=== PATIENT | male | born 1940 | race Two or more races ===

== ENCOUNTER 2024-10-15 20:32 | Observation (INO) | payer MEDICARE, MEDICAID, SELFPAY ==
[2024-10-15 20:34] VITALS: BMI 27.9
--- NOTE | 2024-10-15 21:02 | EKG_ITS ---
[facility] Test Date: 2024-10-15 Pat Name: YAMILETH SOLIS Department: Room: - Gender: Male All Around Presser: : 1940 Requested By: Maksim Martel Order Number: [id number] Reading MD: Maksim Martel Measurements Intervals [place] Rate: 88 P: 27 CA: 167 QRS: 0 QRSD: 82 T: 31 QT: 359 QTc: 436 Interpretive Statements SINUS RHYTHM WITH FREQUENT VENTRICULAR PREMATURE COMPLEXES LOW QRS VOLTAGE IN PRECORDIAL LEADS [QRS DEFLECTION < 1.0 mV IN CHEST LEADS] POSSIBLE ANTERIOR MYOCARDIAL INFARCTION , OF INDETERMINATE AGE [30 ms Q WAVE IN V3/V4, OR R < 0.2 mV IN V4] No previous ECG available for comparison /store/S0/[id number].pdf
[2024-10-15 21:37] LABS: B-Type Natriuretic Peptide 54 pg/mL (0-100)
[2024-10-15 21:38] LABS: Basophils % (Auto) 0 % (0-2.5); Eosinophils # (Auto) 0.2 Thou/mm3 (0.0-0.5); Eosinophils % (Auto) 2 % (0-10); Hematocrit 40.1 % (41.0-53.0); Hemoglobin 13.9 g/dL (13.5-16.0); Immature Granulocytes % (Auto) 0 % (0-0); Immature Granulocytes Auto 0.02 Thou/mm3 (0.00-0.00); Lymphocytes # (Auto) 2.1 Thou/mm3 (1.0-4.8); Lymphocytes % (Auto) 27 % (10-50); Mean Corpuscular HGB Conc 34.7 g/dl (31.0-37.0); Mean Corpuscular Hemoglobin 31.7 pg (25.0-35.0); Mean Corpuscular Volume 91 fL (80-100); Monocytes # (Auto) 0.9 Thou/mm3 (0.0-0.8); Monocytes % (Auto) 11 % (0-12); Neutrophils # (Auto) 4.7 Thou/mm3 (1.8-7.7); Neutrophils % (Auto) 60 % (37-80); Nucleated Red Blood Cell % 0 /100 WBC (0); Platelet Count 225 Thou/mm3 (140-440); RDW Standard Deviation 44.7 fL (35.1-43.9); Red Blood Count 4.39 Miln/mm3 (4.50-5.90); White Blood Count 7.9 Thou/mm3 (3.8-10.6)
--- NOTE | 2024-10-15 21:38 | XR_ITS ---
Examination: CT abdomen and pelvis without contrast. Coronal 3-D reconstructions. Sagittal 2-D reconstructions. Date and time of exam:October 15, 2024 1001 hrs. Indications: Right groin pain today, history inguinal hernia CTDI: vol (mGy): 6.46 DLP: (mGycm): 407 Technique: Axial images of the abdomen have been obtained, 3 mm slice thickness Intravenous contrast material has not been administered. Low dose protocols were performed. One or more of the following dose reduction techniques were used; automated exposure control, adjustment of the mA and/or KV according to patient size, use of iterative reconstruction technique. Findings: No focal liver or splenic lesions Calcification of the splenic capsule No gallstones No pancreatic mass Moderate bilateral renal parenchymal scar formation Perinephric stranding Abdominal aortic calcification no aneurysmal dilatation Normal appendix No bowel obstruction Right inguinal hernia containing sigmoid colon but no incarcerated bowel, no obstruction Fat-containing left inguinal hernia Chronic osteoporotic compression L4 Impression: Right inguinal hernia containing sigmoid colon but no incarcerated bowel Fat-containing left inguinal hernia
[2024-10-15 21:39] VITALS: BP 153/82; PULSE 89; RESP 18; TEMP 36.8; O2SAT 98
--- NOTE | 2024-10-15 21:39 | PC.NURSE ---
First contact with pt in Room 2, pt in gown, connected to bedside public information director call light within reach. Pt's daughter currently at bedside, at bedside evaluating pt.
--- NOTE | 2024-10-15 21:39 | EDNOTE_ITS ---
ED General RME/HPI General Chief complaint: Abdominal Pain Stated complaint: RIGHT GROIN PAIN;HX INGUINAL HERNIA Time Seen by Provider: 10/15/24 20:39 Arrival date/time: 10/15/24 20:32 CC: Right groin pain HPI ongoing for the past week, was seen for the same complaint in [place] was told he had a inguinal hernia . Patient denies scrotal pain painful urination bloody urination abdominal pain nausea vomiting or diarrhea. No prior history of similar events. Related Data Allergies Allergy/AdvReac Type Severity Reaction Status Date / Time No Known Allergies Allergy Verified 10/15/24 20:37 Review of Systems Review of Systems Narrative Review of Systems: GEN: No fever, no chills, no weight loss EYES: No discharge, no visual changes, no pain HEENT: No ear pain, no congestion, no sore throat PULM: No shortness of breath, no cough, no congestion CV: No chest pain, no dyspnea on exertion, no palpitations GI: No nausea, no vomiting, no diarrhea, + pain, no constipation : No frequency, no urgency, no dysuria MUSC/SKEL: No joint pain, no back pain SKIN: No rash PSYCH: No hallucinations, no depression HEME/LYMPH: No easy bleeding or bruising tendencies NEURO: No weakness, no headache Past Medical History Social History SMOKING STATUS: Never smoker ED Exam Narrative Physical exam: [General: Not in any acute distress Head normocephalic HEENT: Within acceptable limits Neck is supple nontender Chest equal chest rise nontender to palpation Respiratory: Clear to auscultation no wheezes crackles or rubs CV: Rate rhythm is regular no murmurs rubs or clicks Abdomen is soft flat there is tenderness in the pubis mons right side inguinal crease, but no firm masses no outpouching. There is no scrotal pain with palpation. , penis is clean dry and intact no blood at the meatus, scrotum is nonerythematous nonedematous. Back: No CVA tenderness no spinous process tenderness from cervical spine thoracic and lumbar spine Skin: Intact no petechiae rash induration ulceration or crepitus Extremities: Moving all extremity against resistance cap refill less than 2 seconds neurosensory intact Neuro: Awake alert oriented x3 Glascow coma 15 no focal deficits] Course Quality Measures none Orders Category Date Time Status EKG (ED ONLY) *Do not use* NOW Care 10/15/24 21:02 Completed Consult to Gastroenterology Stat Cons 10/15/24 21:53 Ordered Consult to General Surgery Stat Cons 10/15/24 21:[address] abdomen pelvis wo con Stat Exams 10/15/24 21:38 Completed EKG (ED Only) Stat Exams 10/15/24 21:02 Draft B-Type Natriuretic Peptide Stat Lab 10/15/24 21:11 Completed CBC Stat Lab 10/15/24 21:11 Completed Comprehensive Metabolic Panel Stat Lab 10/15/24 21:11 Completed Drug Screen,Urine Stat Lab 10/15/24 21:55 Completed LDH (Lactate Dehydrogenase) Stat Lab 10/15/24 21:11 Completed Magnesium Stat Lab 10/15/24 21:11 Completed Partial Thromboplastin Time Stat Lab 10/15/24 21:11 Completed Prothrombin Time with INR Stat Lab 10/15/24 21:11 Completed Troponin I Stat Lab 10/15/24 21:11 Completed Urinalysis Stat Lab 10/15/24 21:55 Completed Vital Signs Vital signs: Vital Signs Temperature 98.2 F 10/15/24 21:39 Pulse Rate 89 10/15/24 21:39 Respiratory Rate 18 10/15/24 21:39 Blood Pressure 153/82 H 10/15/24 21:39 Pulse Oximetry (%) 98 10/15/24 21:39 Oxygen Delivery Method Room Air 10/15/24 21:39 [facility] Patient data External records reviewed:: [facility] previous records Clinical information provided by:: patient and family Social determinants that could affect healthcare access:: none Patient has the following chronic illnesses:: BPH hypertension, hypercholesteremia How is presenting disease/condition affected by chronic disease/condition?: u neffected by Evaluation data The following diagnostics were reviewed and interpreted by me:: lab results and radiology exam(s) Lab and/or radiology exams considered but not ordered:: CBC shows no acute leukocytosis anemia thrombocytopenia CMP shows no acute electrolyte imbalances renal Quan transaminitis or T. bili elevation Coags within acceptable MS Troponin is negative EKG performed at 2159 shows a ventricular rate of 88 NE interval 167 QRS of 82 QTc 405 sinus rhythm with frequent PVCs. CT shows inguinal hernia with a small amount of bowel no incarceration Interpretation Summary: Inguinal hernia with small amount of bowel. Medications Medications considered but not ordered:: None Medication administrations:: None Consultations Consultation(s) initiated? (list below): Yes Consultation #1 (Physician, Specialty, Details): Yunior Time: 23:24 Diagnosis Differential Diagnosis ED Complaint MDM: Inguinal hernia with incarcerated bowel, inguinal hernia with fat inguinal Most likely diagnosis given after review of the tests above:: Inguinal hernia with bowel nonincarcerated Admission Indicated Admission indicated?: indicated Explain why admission is indicated or not indicated:: Further surgical management Admission Request Was there a request for admission?: No Disposition Plan Disposition Plan: Admit Medical Decision Making Differential Diagnosis Differential Diagnosis: Inguinal hernia with incarcerated bowel, inguinal hernia with fat inguinal Lab Data 10/15/24 21:11 10/15/24 21:11 Labs: Lab Results 10/15/24 10/15/24 Range/Units 21:11 21:55 WBC 7.9 (3.8-10.6) Thou/mm3 RBC 4.39 L (4.50-5.90) Miln/mm3 Hgb 13.9 (13.5-16.0) g/dL Hct 40.1 L (41.0-53.0) % MCV 91 (80-100) fL MCH 31.7 (25.0-35.0) pg MCHC 34.7 (31.0-37.0) g/dl RDW Std Deviation 44.7 H (35.1-43.9) fL Plt Count 225 (140-440) Thou/mm3 Neut % (Auto) 60 (37-80) % Lymph % (Auto) 27 (10-50) % [place] % (Auto) 11 (0-12) % Eos % (Auto) 2 (0-10) % Baso % (Auto) 0 (0-2.5) % Neut # (Auto) 4.7 (1.8-7.7) Thou/mm3 Lymph # (Auto) 2.1 (1.0-4.8) Thou/mm3 [place] # (Auto) 0.9 H (0.0-0.8) Thou/mm3 Eos # (Auto) 0.2 (0.0-0.5) Thou/mm3 Baso # (Auto) 0.0 (0.0-0.2) Thou/mm3 Immature Gran # (Auto) 0.02 H (0.00-0.00) Thou/mm3 Absolute Nucleated RBC 0.00 (0.00-0.00) Thou/mm3 Immature Gran % 0 (0-0) % Nucleated RBC % 0 (0) /100 WBC PT 11.3 (9.0-12.2) Seconds INR 1.0 (0.9-1.3) APTT 25.9 (22.0-36.0) Seconds Sodium 140 (136-145) mMol/L Potassium 4.2 (3.4-5.1) mMol/L Chloride 107 (98-107) mMol/L Carbon Dioxide 25.7 (20.0-31.0) mMol/L Anion Gap 7 (7-16) BUN 20 (9-23) mg/dL Creatinine 1.1 (0.6-1.3) mg/dL Estim Creat Clear Calc 47.7 L (>60) mL/min eGFR > 60 (60 - ) See Note BUN/Creatinine Ratio 18 (12-20) Ratio Glucose 89 (74-106) mg/dL Calculated Osmolality 281 (275-295) Calcium 9.7 (8.3-10.6) mg/dL Corrected Calcium 9.7 (8.5-10.1) mg/dL Magnesium 2.0 (1.6-2.6) mg/dL Total Bilirubin 0.6 (0.3-1.2) mg/dL AST 17 (0-34) U/L ALT 16 (10-49) U/L Alkaline Phosphatase 69 (46-116) U/L Lactate Dehydrogenase 160 (120-246) U/L Troponin I < 0.020 (0.0-0.045) ng/mL B-Natriuretic Peptide 54 (0-100) pg/mL Total Protein 7.2 (5.7-8.2) gm/dL Albumin 4.2 (3.4-4.8) gm/dL Globulin 3.0 (2.3-3.5) gm/dL Albumin/Globulin Ratio 1.4 (1.2-2.2) Ur Collection Type Clean Catch Urine Color Yellow (Lt Yel-Yel) Urine Clarity Clear (Clear/Hazy) Urine pH 6.5 (5.0-7.0) Ur Specific [place] 1.024 (1.001-1.035) Urine Protein 1+ A (Neg - Trace) Urine Glucose (UA) Negative (Negative) Urine Ketones Negative (Negative) Urine Blood 1+ A (Negative) Urine Nitrite Negative (Negative) Urine Bilirubin Negative (Negative) Urine Urobilinogen (Auto) Negative (0.0-1.0) mg/dL Ur Leukocyte Esterase Negative (Negative) Urine RBC 17 H (0-3) /hpf Urine WBC 1 (0-5) /hpf Ur Squamous Epith Cells 0 (0-5) /hpf Urine Bacteria None (None) Urine Opiates Screen Negative (Negative) Urine Fentanyl Screen Negative (Negative) Ur Barbiturates Screen Negative (Negative) U Amphetamin/Meth Scrn Negative (Negative) U Benzodiazepines Scrn Negative (Negative) U Cocaine Metab Screen Negative (Negative) U Marijuana (THC) Screen Negative (Negative) Discharge Plan Plan Patient Disposition: Other Care w/in Hosp ([facility]C/[facility]) Patient condition on transfer: Stable Prescriptions/Referrals Referrals: Blair Mojica MD [Primary Care Provider] - In 1 week Problem List Clinical Impression: Inguinal hernia, Abdominal pain, acute, right lower quadrant Patient/Caregiver Discharge Instructions Print Language: Montserratian Stand Alone Forms: Gisela Award Info., Patient Portal Info Letter PA/BACON SKIN LIFTER Supervising Physician PA/BACON SKIN LIFTER Supervising Physician: Adilson Neal ENP
[2024-10-15 21:42] LABS: Alanine Aminotransferase 16 U/L (10-49); Albumin, Serum 4.2 gm/dL (3.4-4.8); Albumin/Globulin Ratio 1.4 (1.2-2.2); Alkaline Phosphatase 69 U/L (46-116); Anion Gap 7 (7-16); Aspartate Amino Transferase 17 U/L (0-34); BUN/Creatinine Ratio 18 Ratio (12-20); Bilirubin,Total 0.6 mg/dL (0.3-1.2); Blood Urea Nitrogen 20 mg/dL (9-23); Calcium 9.7 mg/dL (8.3-10.6); Calcium (Corrected) 9.7 mg/dL (8.5-10.1); Carbon Dioxide 25.7 mMol/L (20.0-31.0); Chloride 107 mMol/L (98-107); Creatinine (Component) 1.1 mg/dL (0.6-1.3); Estimated Creatinine Clearance 47.7 mL/min (>60); Glucose 89 mg/dL (74-106); Osmolality,Calculated 281 (275-295); Potassium 4.2 mMol/L (3.4-5.1); Sodium 140 mMol/L (136-145); Total Protein 7.2 gm/dL (5.7-8.2); Troponin I < 0.020 ng/mL (0.0-0.045); eGFR > 60 See Note
[2024-10-15 21:46] LABS: Partial Thromboplastin Time 25.9 Seconds (22.0-36.0); Prothrombin Time 11.3 Seconds (9.0-12.2)
[2024-10-15 22:03] LABS: Collection Type, Urine Clean Catch; Squamous Epithelial Cell,Urine 0 /hpf (0-5)
[2024-10-15 22:15] LABS: Bilirubin,Urine Negative (Negative); Blood,Urine 1+ (Negative); Clarity,Urine Clear (Clear/Hazy); Color,Urine Yellow (Lt Yel-Yel); Glucose, Urine Negative (Negative); Ketones,Urine Negative (Negative); Leukocyte Esterase,Urine Negative (Negative); Nitrite,Urine Negative (Negative); PH,Urine 6.5 (5.0-7.0); Protein,Urine 1+ (Neg - Trace); RBC,Urine 17 /hpf (0-3); Specific Gravity,Urine 1.024 (1.001-1.035); Urobilinogen,Urine Negative mg/dL (0.0-1.0); WBC,Urine 1 /hpf (0-5)
[2024-10-15 22:23] LABS: Amphetamine/Methamp Scrn,U Negative (Negative); Barbiturate Screen,Urine Negative (Negative); Benzodiazepines Screen,Urine Negative (Negative); Benzoylecgonine Screen, Ur Negative (Negative); Fentanyl Screen,Urine Negative (Negative); Opiate Screen,Urine Negative (Negative); THC Screen,Urine Negative (Negative)
[2024-10-15 22:35] LABS: LDH (Lactate Dehydrogenase) 160 U/L (120-246)
[2024-10-15 23:00] VITALS: BP 140/94; PULSE 88; RESP 18; TEMP 36.5; O2SAT 98
[2024-10-16] VITALS (14 sets, daily range): BP systolic 114–157; BP diastolic 55–94; PULSE 64–97; RESP 12–92; TEMP 36.2–36.8; O2SAT 92–100; BMI 25.4
--- NOTE | 2024-10-16 01:04 | PD.RESHP ---
Documentation for date of: 10/16/24 HPI History of Present Illness Chief complaint: pain at the site of hernia History of present illness: A 83-year-old male with past medical history of hypertension, BPH presented to the hospital with chief complaints of pain at the site of right inguinal hernia since 1 week. Patient went to [place] last week and went to the hospital in the [place] in view of pain at the site of inguinal hernia and recommended to get surgery. Patient endorsed that he is having right inguinal hernia since 5 to 6 months from now and since 2 weeks patient is having pain at the site of hernia. Endorsed that the swelling reduces manually and increases with coughing denies fever, constipation, abdominal pain, blood or blackish discoloration of stools. Denies any history of chronic cough or lifting heavy weights. ED Course: -Initial vitals were stable except for mildly elevated blood pressure 153/82 mmHg. -Labs significant for WBC 7.9, BUN 20, creatinine 1.1. Urine analysis showed 1+ proteinuria, 1+ blood, 17 RBC. Tested negative for urine toxicology -Abdomen/pelvis CT showed right inguinal hernia with sigmoid colon as content without iincarceration -Patient was admitted for pain at right inguinal hernia for observation Past medical history: Hypertension, BPH Past surgical history: Not significant Social history: Had remote history of smoking, cigars once in a while, denies alcohol, other illicit drug abuse. Review of Systems Review of Systems Systems Reviewed: All systems reviewed, normal except as documented Past Medical History Past Medical History CARDIAC: Positive Hypertension GENITOURINARY: Positive Benign Prostatic Hyperplasia Social History SMOKING STATUS: Former smoker Exam Vital Signs Temp Pulse Resp BP Pulse Ox O2 Del Method 97.8 F 88 18 157/94 H 95 Room Air 10/16/24 00:00 10/16/24 00:00 10/16/24 00:00 10/16/24 00:00 10/16/24 00:00 10/16/24 00:00 Narrative Exam General: Awake. HEENT: Normocephalic, atraumatic, mucous membranes moist. Heart: Regular rate and rhythm, no murmurs. Lungs: Clear to auscultation with no wheezing or crackles. Abdomen: Soft, nondistended, nontender, positive bowel sounds. ?No guarding or rebound tenderness. reducible inguinal hernia Neurologic: Alert and oriented x3, no gross neurological deficit, and patient able to move all 4 extremities. Extremities: No edema. Skin: No rash or ecchymoses. Results: Labs 10/15/24 21:11 10/15/24 21:11 Labs: Short CBC 10/15/24 Range/Units 21:11 WBC 7.9 (3.8-10.6) Thou/mm3 Hgb 13.9 (13.5-16.0) g/dL Hct 40.1 L (41.0-53.0) % Plt Count 225 (140-440) Thou/mm3 BMP 10/15/24 21:11 Sodium 140 Potassium 4.2 Chloride 107 Carbon Dioxide 25.7 BUN 20 Creatinine 1.1 Glucose 89 Calcium 9.7 Cardiac Enzymes 10/15/24 Range/Units 21:11 Troponin I < 0.020 (0.0-0.045) ng/mL Liver Function 10/15/24 Range/Units 21:11 Total Bilirubin 0.6 (0.3-1.2) mg/dL AST 17 (0-34) U/L ALT 16 (10-49) U/L Alkaline Phosphatase 69 (46-116) U/L Albumin 4.2 (3.4-4.8) gm/dL Urine 10/15/24 Range/Units 21:55 Urine Color Yellow (Lt Yel-Yel) Urine Clarity Clear (Clear/Hazy) Urine pH 6.5 (5.0-7.0) Ur Specific [place] 1.024 (1.001-1.035) Urine Protein 1+ A (Neg - Trace) Urine Glucose (UA) Negative (Negative) Quality Measures Quality Measures none Advance care planning discussed with:: patient Medications Home Medications and Allergies Home Medications ?Medication ?Instructions ?Recorded ?Confirmed ?Type amlodipine 10 mg tablet 10 mg PO QDAY 10/15/24 10/15/24 History aspirin 81 mg capsule 81 mg PO QDAY 10/15/24 10/15/24 History atorvastatin 10 mg tablet 10 mg PO QDAY 10/15/24 10/15/24 History cholecalciferol (vitamin D3) 125 125 mcg PO QDAY 10/15/24 10/15/24 History mcg (5,000 unit) tablet (Vitamin D3) omeprazole 40 mg capsule,delayed 40 mg PO QDAY 10/15/24 10/15/24 History release tamsulosin 0.4 mg capsule 0.4 mg PO QDAY 10/15/24 10/15/24 History Allergies Allergy/AdvReac Type Severity Reaction Status Date / Time No Known Allergies Allergy Verified 10/15/24 20:37 Visit Medications Acetaminophen (Acetaminophen 325 Mg Tablet) 650 mg PO Q6H PRN PRN Reason: Fever >101.5 Stop: 11/15/24 00:40 Magnesium Hydroxide (Milk Of Magnesia Susp 30 Ml Udc) 30 ml PO QDAY PRN; Protocol PRN Reason: CONSTIPATION Stop: 11/15/24 00:40 Ondansetron HCl (Ondansetron Inj 2 Mg/Ml Inj 2 Ml) 4 mg IV Q6H PRN; Protocol PRN Reason: NAUSEA OR VOMITING Stop: 11/15/24 00:40 Assessment & Plan Plan A 83-year-old male with past medical history of hypertension, BPH presented to the hospital with chief complaints of pain at the site of right inguinal hernia since 1 week # Right inguinal hernia # Incarceration ruled out -Patient had history of right inguinal hernia since 5 to 6 months -Since 1 to 2 weeks, patient noticed pain at the site of inguinal hernia -Denies constipation, dysuria, blood or blackish discoloration of stools -On physical examination, the hernia is reducible and cough reflex was noted -Vitals are stable at the time of admission except for mildly elevated blood pressure 153/82 mmHg -CBC and CMP are within normal limits -CT abdomen/pelvis showed right inguinal hernia with sigmoid colon as content without any incarceration Plan -Admitted for observation -Dr. Mcguire was consulted, will see the patient in morning -Tramadol for pain as needed -Patient was on n.p.o. in view of anticipated surgery # History of hypertension -Blood pressure at the time of admission is 153/82 mmHg -Patient is using amlodipine 10 Mg p.o. daily at home -Resume his home medication # History of BPH -Patient is on tamsulosin 0.4 Mg p.o. daily -Resume his home medication Hospital Maintenance: Dispo: MedSurg for observation DVT ppx: SCD GI ppx: Not needed Diet: N.p.o. for now IV lines: Peripheral Code status: Full code Patient plan of care was discussed with the attending physician, Dr. Ramirez Orozco, PGY1 Attending Provider Attestation/Addendum I have examined the patient, reviewed labs and imaging findings, discussed the case with the resident(s), and reviewed entered orders. I agree with the plan of care as outlined in this note, with these additional summaries/recommendations: Patient is a pleasant 83-year-old male with a medical history of primary hypertension, GERD, and BPH who presented to [facility] emergency department on 10/15/20 with chief complaint of right groin pain and thus hospitalist team consulted for continuation of care. Patient seen at bedside. Patient has no symptoms to report at this time and resting comfortably in bed. He does endorse right groin discomfort and pain when standing. Patient's PCP Dr. Mojica has recommended admission (consulted by ER provider) and general surgery has been consulted. CT abdomen and pelvis showed right inguinal hernia containing sigmoid colon but no incarcerated bowel and fat-containing left inguinal hernia. Chemistry panel and hematology panel relatively within normal limits. Urinalysis within normal limits. Troponin negative and EKG shows PVCs with sinus rhythm. We will admit patient to observation and pending surgical evaluation. Appreciate surgical recs if procedure can be done electively outpatient although it is concerning that this is patient's second ER visit for the same symptoms and does appear to have intractable pain while standing. As needed pain management and resume home medications. Dr. Guzmán
[2024-10-16 06:06] LABS: Basophils % (Auto) 0 % (0-2.5); Eosinophils # (Auto) 0.2 Thou/mm3 (0.0-0.5); Eosinophils % (Auto) 3 % (0-10); Hematocrit 38.5 % (41.0-53.0); Hemoglobin 13.4 g/dL (13.5-16.0); Immature Granulocytes % (Auto) 0 % (0-0); Immature Granulocytes Auto 0.02 Thou/mm3 (0.00-0.00); Lymphocytes # (Auto) 1.7 Thou/mm3 (1.0-4.8); Lymphocytes % (Auto) 24 % (10-50); Mean Corpuscular HGB Conc 34.8 g/dl (31.0-37.0); Mean Corpuscular Hemoglobin 31.6 pg (25.0-35.0); Mean Corpuscular Volume 91 fL (80-100); Monocytes # (Auto) 0.7 Thou/mm3 (0.0-0.8); Monocytes % (Auto) 11 % (0-12); Neutrophils # (Auto) 4.4 Thou/mm3 (1.8-7.7); Neutrophils % (Auto) 62 % (37-80); Nucleated Red Blood Cell % 0 /100 WBC (0); Platelet Count 195 Thou/mm3 (140-440); RDW Standard Deviation 43.9 fL (35.1-43.9); Red Blood Count 4.24 Miln/mm3 (4.50-5.90)
[2024-10-16 06:47] LABS: Anion Gap 8 (7-16); BUN/Creatinine Ratio 19 Ratio (12-20); Blood Urea Nitrogen 19 mg/dL (9-23); Calcium 9.2 mg/dL (8.3-10.6); Carbon Dioxide 26.4 mMol/L (20.0-31.0); Chloride 105 mMol/L (98-107); Estimated Creatinine Clearance 47.7 mL/min (>60); Glucose 81 mg/dL (74-106); Osmolality,Calculated 278 (275-295); Potassium 4.1 mMol/L (3.4-5.1); Sodium 139 mMol/L (136-145); eGFR > 60 See Note
--- NOTE | 2024-10-16 08:09 | PD.SURCONS ---
HPI Consult details Consult date: 10/16/24 Reason for consultation narrative: The patient was seen in consultation because of pain over the right groin and the swelling due to right inguinal hernia History of present illness: History of present illness revealed that the patient has had this hernia for many years and he does not remember how many years. He speaks only Barbadian and is a poor historian. Apparently he started having pain since Tuesday over the right groin swelling. He was not having any nausea or vomiting. His bowel movements are normal. Because of the increasing pain patient came to the emergency room and was admitted. His past medical history consist of hypertension and BPH denies any past surgery. The patient also was seen in [place] recently and was evaluated by physicians there and advised surgery. There is no definite history about why they did not operate on him Review of Systems Review of Systems Narrative Review of Systems: Physical examination revealed an elderly gentleman who speaks only Barbadian and is a poor historian. Past Medical History Past Medical History NEUROLOGIC: Negative Neurological Disorders CARDIAC: Positive Hypertension; Negative Cardiac Disorders, Hypercholesterolemia or Congestive Heart Failure RESPIRATORY: Negative Respiratory Disorders or Chronic Obstructive Pulmonary Disease (COPD) GASTROINTESTINAL: Negative Gastrointestinal Disorders GENITOURINARY: Positive Genitourinary Disorders and Benign Prostatic Hyperplasia; Negative Renal Disease REPRODUCTIVE: Negative Fibroids MUSCULOSKELETAL: Positive Musculoskeletal Disorders (sciatic nerve pain) ENT: Negative History of ENT Problems ENDOCRINE: Negative Endocrine Disorders, Diabetes Mellitus Type 1 or Diabetes Mellitus Type 2 HEMATOLOGIC: Negative Blood Disorders OTHER HISTORY: Negative Autoimmune Disease, Anesthesia Reactions, Organ Transplant, MRSA, Clostridium Difficile or Cancer Family History FAMILY HISTORY: Negative Family Cancer, Family Surgery or Family Anesthesia Reaction Surgical History SURGICAL: Negative Cardiac Surgery, Endocrine Surgery, Ear Surgery, Abdominal Surgery, Nephrectomy, Joint Replacement, Neurologic Surgery, Mastectomy, Vasectomy or Organ Transplant Social History SMOKING STATUS: Never smoker SECOND HAND EXPOSURE: No Meds Home Medications and Allergies Home Medications ?Medication ?Instructions ?Recorded ?Confirmed ?Type amlodipine 10 mg tablet 10 mg PO QDAY 10/15/24 10/15/24 History aspirin 81 mg capsule 81 mg PO QDAY 10/15/24 10/15/24 History atorvastatin 10 mg tablet 10 mg PO QDAY 10/15/24 10/15/24 History cholecalciferol (vitamin D3) 125 125 mcg PO QDAY 10/15/24 10/15/24 History mcg (5,000 unit) tablet (Vitamin D3) omeprazole 40 mg capsule,delayed 40 mg PO QDAY 10/15/24 10/15/24 History release tamsulosin 0.4 mg capsule 0.4 mg PO QDAY 10/15/24 10/15/24 History Allergies Allergy/AdvReac Type Severity Reaction Status Date / Time No Known Allergies Allergy Verified 10/15/24 20:37 Exam Vital Signs Temp Pulse Resp BP Pulse Ox O2 Del Method 97.4 F 64 18 148/79 H 95 Room Air 10/16/24 08:00 10/16/24 08:00 10/16/24 08:00 10/16/24 08:00 10/16/24 08:00 10/16/24 08:00 Narrative Exam Physical examination revealed an elderly gentleman who appeared to be in his stated age and he is 5 foot 4 inches tall weighing 148 pounds. His vital signs are normal Routine Respiratory Exam Comments: Good breath sounds on both sides Routine Abdominal Exam Comments: Abdomen is soft and flat and patient had a large right inguinal hernia which is tender to palpate but it has been reduced. There is no abdominal distention to suggest bowel obstruction Routine Exam Comments: Deferred Routine Extremities Exam Comments: Within normal limits Results Results: Laboratory Laboratory Narrative: Patient's laboratory work is within normal limits Results: Imaging Imaging narrative: CT of the abdomen showed right inguinal hernia probably containing sigmoid colon. There is no evidence of incarceration on the CT scan Assessment & Plan Additional Assessment Additional comments: Impression: Symptomatic right inguinal hernia with incarceration but reduced Plan Plan: I advised the patient to undergo repair of this hernia which is giving him considerable amount of pain. Even though it is reducible it seemed to contain pieces of the colon and that he will have more symptoms like bowel obstruction if not operated. He is agreeable.
[2024-10-16] MEDS: amLODIPine BESYLATE 5 MG TABLET 10 MG PO (09:10)
[2024-10-16] MEDS: TAMSULOSIN HCL 0.4 MG CAPSULE PO (09:10)
--- NOTE | 2024-10-16 09:30 | PC.SS ---
Initial assessment: This is 83 year old male admitted for inguinal hernia and pain. Patient appeared alert and oriented. Patient comes from home. Patient informs he lives at home with his daughter Carlie. Patient informs Carlie and son Felipe are listed as emergency contact for the patient. Confirmed home address. Patient informs he is independent with ADL's. Denied use of DME at home. Patient informs he does not recall PCP name. Patient pharmacy is [facility]. Patient informs he will discharge home when medically cleared. Patient informs he has stable transportation. D/c plan: Home Next of kin: daughter, Carlie Rivera [phone]
--- NOTE | 2024-10-16 09:38 | PC.SS ---
Initial assessment: This is 83 year old male admitted for inguinal hernia and pain. Patient appeared alert and oriented. Patient comes from home. Patient informs he lives at home with his daughter Carlie. Patient informs Carlie and son Felipe are listed as emergency contact for the patient. Confirmed home address. Patient informs he is independent with ADL's. Denied use of DME at home. Patient informs he does not recall PCP name. [facility]. Patient informs he will discharge home when medically cleared. Patient informs he has stable transportation. D/c plan: Home Next of kin: daughter, Carlie Rivera [ End ]
--- NOTE | 2024-10-16 11:34 | ESPR_ITS ---
<Statement entered by Carmina Fairbanks MD - 10/27/24 13:36> I reviewed above note and agree with findings and plans. I have also personally examined the patient with medicine team and went over assessment and plan with medical team including purchasing intern and resident physician. Documentation for date of: 10/16/24 Subjective Subjective Interval history: Patient was seen at bedside this morning. No overnight events. Will undergo surgical intervention by general surgeon today. No other complaints at this time. Exam Vital Signs Temp Pulse Resp BP Pulse Ox O2 Del Method 97.4 F 64 18 148/79 H 95 Room Air 10/16/24 08:00 10/16/24 09:10 10/16/24 08:00 10/16/24 09:10 10/16/24 08:00 10/16/24 08:00 Narrative Exam General: A/O x3, no acute distress, well-nourished, well-developed Eyes: PERRL, EOMI. Anicteric, vision grossly intact. Ears: No ear pain, no ear discharge, Hearing grossly intact. Nose: No nasal discharge. Mouth/Throat: Moist mucous membranes, no redness, no lesions. Neck: Neck supple, non-tender, no cervical lymphadenopathy. Lungs: Clear XIMENA to auscultation and percussion, No accessory muscle use. Cardio: Normal S1/S2, regular rhythm, no murmurs, no JVD or carotid bruits. Abdomen: Soft, non-tender, no palpable masses, peristalsis present, no guarding or rebound. Reducible R inguinal hernia Extremities: Symmetrical, no significant deformities, no peripheral edema , non-tender, peripheral pulses presents. Skin: No rashes, no lesions, warm to touch. Neuro: No focal neurological deficits. motor and sensory intact Psych: Cooperative, appropriate mood and effect. Objective Labs 10/16/24 05:24 10/16/24 05:24 Labs: Laboratory Results - last 24 hr 10/15/24 10/15/24 10/16/24 21:11 21:55 05:24 WBC 7.9 7.0 RBC 4.39 L 4.24 L Hgb 13.9 13.4 L Hct 40.1 L 38.5 L MCV 91 91 MCH 31.7 31.6 MCHC 34.7 34.8 RDW Std Deviation 44.7 H 43.9 Plt Count 225 195 D Neut % (Auto) 60 62 Lymph % (Auto) 27 24 [place] % (Auto) 11 11 Eos % (Auto) 2 3 Baso % (Auto) 0 0 Neut # (Auto) 4.7 4.4 Lymph # (Auto) 2.1 1.7 [place] # (Auto) 0.9 H 0.7 Eos # (Auto) 0.2 0.2 Baso # (Auto) 0.0 0.0 Immature Gran # (Auto) 0.02 H 0.02 H Absolute Nucleated RBC 0.00 0.00 Immature Gran % 0 0 Nucleated RBC % 0 0 PT 11.3 INR 1.0 APTT 25.9 Sodium 140 139 Potassium 4.2 4.1 Chloride 107 105 Carbon Dioxide 25.7 26.4 Anion Gap 7 8 BUN 20 19 Creatinine 1.1 1.0 Estim Creat Clear Calc 47.7 L 47.7 L eGFR > 60 > 60 BUN/Creatinine Ratio 18 19 Glucose 89 81 Calculated Osmolality 281 278 Calcium 9.7 9.2 Corrected Calcium 9.7 Magnesium 2.0 Total Bilirubin 0.6 AST 17 ALT 16 Alkaline Phosphatase 69 Lactate Dehydrogenase 160 Troponin I < 0.020 B-Natriuretic Peptide 54 Total Protein 7.2 Albumin 4.2 Globulin 3.0 Albumin/Globulin Ratio 1.4 Ur Collection Type Clean Catch Urine Color Yellow Urine Clarity Clear Urine pH 6.5 Ur Specific [place] 1.024 Urine Protein 1+ A Urine Glucose (UA) Negative Urine Ketones Negative Urine Blood 1+ A Urine Nitrite Negative Urine Bilirubin Negative Urine Urobilinogen (Auto) Negative Ur Leukocyte Esterase Negative Urine RBC 17 H Urine WBC 1 Ur Squamous Epith Cells 0 Urine Bacteria None Urine Opiates Screen Negative Urine Fentanyl Screen Negative Ur Barbiturates Screen Negative U Amphetamin/Meth Scrn Negative U Benzodiazepines Scrn Negative U Cocaine Metab Screen Negative U Marijuana (THC) Screen Negative Quality Measures Quality Measures none Advance care planning discussed with:: patient Assessment & Plan Assessment Current Active Medications: Generic Name Dose Route Start Last Admin Trade Name Freq PRN Reason Stop Dose Admin Acetaminophen 650 mg 10/16/24 08:59 Acetaminophen 325 Mg Tablet PO 11/15/24 00:40 Q6H PRN Fever >100.3 Amlodipine Besylate 10 mg 10/16/24 09:00 10/16/24 09:10 Amlodipine Besylate 5 Mg Tablet PO 11/15/24 08:59 10 mg QDAY HELEN Administration Aspirin 81 mg 10/16/24 09:00 10/16/24 09:11 Aspirin Ec 81 Mg Tabec PO 11/15/24 08:59 Not Given QDAY HELEN Atorvastatin Calcium 10 mg 10/16/24 21:00 Atorvastatin Calcium 10 Mg Tablet PO 11/15/24 20:59 HS HELEN Fentanyl Citrate 25 mcg 10/16/24 11:32 Fentanyl Cit Inj 50 Mcg/Ml Amp 2ml IV 10/16/24 13:32 Q5M PRN PAIN SCALE 7-10 (Severe Protocol Fentanyl Citrate 25 mcg 10/16/24 11:32 Fentanyl Cit Inj 50 Mcg/Ml Amp 2ml IV 10/16/24 13:32 Q5M PRN PAIN SCALE 4-6 (Moderate Protocol Fentanyl Citrate 25 mcg 10/16/24 11:32 Fentanyl Cit Inj 50 Mcg/Ml Amp 2ml IV 10/16/24 13:32 Q5M PRN PAIN SCALE 1-3 (mild Protocol Magnesium Hydroxide 30 ml 10/16/24 00:41 Milk Of Magnesia Susp 30 Ml Udc PO 11/15/24 00:40 QDAY PRN CONSTIPATION Protocol Ondansetron HCl 4 mg 10/16/24 00:41 Ondansetron Inj 2 Mg/Ml Inj 2 Ml IV 11/15/24 00:40 Q6H PRN NAUSEA OR VOMITING Protocol Ondansetron HCl 4 mg 10/16/24 11:32 Ondansetron Inj 2 Mg/Ml Inj 2 Ml IV 10/16/24 11:33 X1 ONE Tamsulosin HCl 0.4 mg 10/16/24 09:00 10/16/24 09:10 Tamsulosin Hcl 0.4 Mg Capsule PO 11/15/24 08:59 0.4 mg QDAY HELEN Administration Tramadol HCl 50 mg 10/16/24 01:22 Tramadol Hcl 50 Mg Tablet PO 10/21/24 01:21 Q6HR PRN Pain 6-10 Plan 83-year-old male with past medical history of hypertension and BPH was admitted to the hospital on 10/16/2024 due to bilateral inguinal hernias, nonincarcerated. #Bilateral inguinal hernia #Incarceration ruled out ? Patient states he has history of inguinal hernias, but that since Tuesday his pain began increasing and he went to the facility in [place] and said that he needed surgery. ?CT abdomen/pelvis showed right inguinal hernia with sigmoid colon as constant with following incarceration and fat-containing left inguinal hernia. Plan: ? Patient is n.p.o. ? General surgeon will take patient to the OR today for surgical intervention. ? Pain control medication as needed ?General Surgeon consulted, pursue recommendations ? Will continue to monitor #Hx of HTN ? Patient's blood pressure has been in the 140s to 150s over 70s to 90s during hospital admission ? Continue patient's amlodipine 10 mg daily #Hx of BPH ? Continue tamsulosin Disposition: Patient seen in [facility] pending surgery Diet: NPO GI prophylaxis: protonix DVT prophylaxis: SCDs Code: Full Will transfer patient care to general surgeon Dr. Mcguire. Thank you for allowing us to be part of the patient's care at this time, internal medicine team. Case disclosed with Attending Dr. Fairbanks and My senior Dr. Blake PGY2. Erick Lang PGY1 Senior Resident Attestation: The patient is 82-year-old male with significant past medical history of hypertension and BPH presented for further evaluation of bilateral inguinal hernias was admitted to [facility] and underwent repair of the right indirect inguinal hernia with high ligation of the sac and less meant of 2 x 4 Marlex mesh on the floor of the inguinal canal. The patient care was further transferred to general surgeon Dr. Mcguire. I discussed with and supervised the purchasing intern physician involved in the care of this patient. I personally saw and examined the patient and discussed the assessment and plan with the entire medicine team, including my attending. I agree with the assessment and plan as documented above. Octavio Blake MD PGY2 Internal Medicine
--- NOTE | 2024-10-16 12:10 | SUR.PHASEI ---
pt received to [facility]. oral airway out on arrival by dr martinez. wakes with stimulation. denies pain and nausea. dressing to right inguinal area cdi. vss. breathing even and unlabored on room air.
--- NOTE | 2024-10-16 12:19 | SUR.PHASEI ---
1219 Report received from Zuleika LEUNG
--- NOTE | 2024-10-16 12:19 | SUR.PHASEI ---
report to nurse olmstead. pt remains with breathing even and unlabored. denies pain and nausea. resting with eyes closed. vss. on room air.
[2024-10-16] MEDS: fentaNYL CIT INJ 50 mCg/ML AMP 2ML 25 MCG IV ×2 (12:26→12:42)
--- NOTE | 2024-10-16 12:35 | PD.SUROPNT ---
Date of Procedure 10/16/24 Pre Op Diagnosis Symptomatic right inguinal hernia Post Op Diagnosis Same, indirect right inguinal hernia Procedure Repair of the right indirect inguinal hernia with high ligation of the sac and placement of 2 x 4 Marlex mesh on the floor of the inguinal canal Findings Patient was found to have a large but thin sac accompanying the cord structures containing large piece of omentum Procedure Description After the patient was given LMA anesthesia is lower abdomen was prepped with chloreprep solution and draped Lopez catheter was inserted to empty the bladder. Standard right groin incision was made in the external oblique was reached. Incision was made over the external oblique and the patient was found to have a large sac next to the cord structures. The cord structures were encircled around a [place] drain and the sac was easily . It was opened and was found to contain omentum. Patient had a large opening in this hernial sac in the mouth of the internal ring was wide. I suture ligated this with 2-0 chromic and then divided. Another 2-0 chromic suture ligation was used to prevent any slippage of the previous suture. Then I palpated the floor of the inguinal canal which appeared to be strong. I placed a 2 x 4 Marlex mesh and attached it medially to the pubic tubercle and laterally it was tucked underneath the external oblique after crossing the cord structures. I placed one stitch of Prolene lateral to the cord structures. Then external oblique was closed with running 2-0 Vicryl and subcutaneous tissues was approximated with 30 plain I injected half percent Marcaine with epinephrine for analgesia and the skin was closed with 4-0 Monocryl. Dressing was applied with Adaptic and 4 x 4 and the patient tolerated the procedure well and left operating room in stable condition. The Lopez catheter was removed at the end of the procedure Anesthesia GETA Pathology / specimen None Estimated Blood Loss 20 Condition Stable Disposition PACU Surgeon Danny Kwan MD Surgical Staff Operation Date: 10/16/24 15:15 Case Staff Anesthesiologist: Corwin Lopez RN First Assistant: Torie Khan
--- NOTE | 2024-10-16 13:07 | SUR.PHASEI ---
1304 Report given to Ioana LEUNG, patient meets discharge criteria from recovery, awake and talking with staff, breathing unlabored, vital signs stable, patient denies pain states his pain is better, dressing intact; no bleeding noted, patient eating ice chips; tolerating well 1307 Patient transported via gurney to room 358 without incident family was awaiting for patient in her room, patient able to ambulate from rney to bed with standby assist, JAVA WEB ARCHITECT promptly in patients room, patient resting comfortably in bed with JAVA WEB ARCHITECT at bedside when this automobile and property underwriter left patients room
--- NOTE | 2024-10-16 18:05 | ESPR_ITS ---
Documentation for date of: 10/16/24 Subjective Subjective Brief History: History of present illness revealed that the patient has had this hernia for many years and he does not remember how many years. He speaks only Sinhala and is a poor historian. Apparently he started having pain since Tuesday over the right groin swelling. He was not having any nausea or vomiting. His bowel movements are normal. Because of the increasing pain patient came to the [facility] room and was admitted. His past medical history consist of hypertension and BPH denies any past surgery. The patient also was seen in [place] recently and was evaluated by physicians there and advised surgery. There is no definite history about why they did not operate on him Narrative: Patient is doing well since surgery and is tolerating diet and has brandon Exam Vital Signs Temp Pulse Resp BP Pulse Ox O2 Del Method 97.2 F 95 18 132/76 H 96 Room Air 10/16/24 16:00 10/16/24 16:00 10/16/24 16:00 10/16/24 16:00 10/16/24 16:00 10/16/24 16:00 His vital signs are normal including his blood pressure Assessment & Plan Assessment Additional comments: Impression: Stable postoperative course for right inguinal hernia repair Plan Plan: We shall discharge the patient today and see him next week in my office. Procedures Procedures Repair of the right indirect inguinal hernia with high ligation of the sac and placement of 2 x 4 Marlex mesh on the floor of the inguinal canal
== END 2024-10-16 18:46 | disposition home or self-care (01) ==
LOC: SERX 23:25 → SERHOLD 10-16 01:06 → S3NX 10-16 02:38
PROVIDERS: Registered Nurse General Practice; Surgery; Admitting Provider Student in an Organized Health Care Education/Training Program; Emergency Provider Emergency Medicine; PCP Specialist; Visit Provider Student in an Organized Health Care Education/Training Program
PROC: (CPT 49505; principal; 2024-10-16 15:00)
DX: K40.90 Unilateral inguinal hernia, without obstruction or gangrene, not specified as recurrent (principal); K21.9 Gastro-esophageal reflux disease without esophagitis; I11.0 Hypertensive heart disease with heart failure; N40.0 Benign prostatic hyperplasia without lower urinary tract symptoms; Z01.810 Encounter for preprocedural cardiovascular examination
CPT/HCPCS: 49505; 36415; 74176; 80048; 80053; 80307; 81001; 83615; 83735; 83880; 84484; 85025; 85610; 85730; 93005; 99285; 99292; A4217; A4649; C1781; G0378; J1100; J2250; J2371; J2405; J2704; J3010; J3490; A9270